=== PATIENT | female | born 1955 | race Caucasian/White ===

== ENCOUNTER 2016-06-28 07:54 | Emergency (ER) | payer OTHER ==
[2016-06-28 08:10] VITALS: BP 119/68
--- NOTE | 2016-06-28 08:41 | UC ---
Lower Extremity/Ankle HPI - HPI Summary HPI Summary: 61 female presents with complaints of left 4th toe pain that began approximately 2 weeks ago. Does not recall an injury or trauma to her toe. States the toe pain gets worse when she walks/bears weight, about an 8/10. However she is able to move her toe manually, without bearing weight, with minimal pain. She denies any bruising, swelling and redness. Denies foot and ankle pain. She take Celebrex on a daily basis which does not seem to help her pain. Has not related the toe pain to any specific shoes as she wears different ones daily. Can not point to one spot on her toe that hurts the worse, states it is the entire thing. Palpating her toes does cause some pain. Admits to arthritis of her lower back. - History of Current Complaint Chief Complaint: UCLowerExtremity Stated Complaint: TOE COMPLAINT Time Seen by Provider: 06/28/16 08:20 Hx Obtained From: Patient ?: No Onset/Duration: Sudden Onset, Lasting Weeks, Worse Since Severity Initially: Mild Severity Currently: Mild Pain Intensity: 8 Pain Scale Used: 0-10 Numeric Aggravating Factor(s): Standing, Ambulation Alleviating Factor(s): Rest Able to Bear Weight: Yes - Risk Factors Gout Risk Factors: Negative DVT Risk Factors: Negative Septic Arthritis Risk Factor: Negative - Allergies/Home Medications Allergies/Adverse Reactions: Allergies Allergy/AdvReac Type Severity Reaction Status Date / Time Penicillins Allergy Severe Hives Verified 08/15/15 07:54 Doxycycline AdvReac Intermediate GI Upset Verified 02/23/16 08:03 Adhesive Tape AdvReac RASH IF Verified 02/23/16 08:03 LEFT ON TOO LONG PMH/Surg Hx/FS Hx/Imm Hx Endocrine History Of: Denies: Diabetes, Thyroid Disease Cardiovascular History Of: Denies: Cardiac Disorders, Hypertension, Pacemaker/ICD Respiratory History Of: Denies: COPD, Asthma GI/ History Of: Denies: Ulcer Cancer History Of: Denies: Breast Cancer - Surgical History Surgical History: Yes Surgery Procedure, Year, and Place: hysterectomy 1994, [facility] [place]. tubular 36, [facility]. appendix, ,[facility]. right knee ARTHROSCOPIC SURGERY, [facility]. BIOPSY OF LEFT BREAST, [facility] (ATLEAST 20 YEARS AGO) - Family History Known Family History: Positive: Diabetes - paternal grandfather Negative: Cardiac Disease, Hypertension - Social History Alcohol Use: Occasionally Alcohol Amount: a few times weekly Substance Use Type: None Smoking Status (MU): Current Some Day Smoker Type: Cigarettes Amount Used/How Often: only when having a couple of beers Length of Time of Smoking/Using Tobacco: 15 YEARS Have You Smoked in the Last Year: No When Did the Patient Quit Smoking/Using Tobacco: 2010 - Immunization History Most Recent Influenza Vaccination: season Review of Systems Constitutional: Negative Skin: Negative Eyes: Negative ENT: Negative Respiratory: Negative Cardiovascular: Negative Motor: Negative Neurovascular: Negative Musculoskeletal: Arthralgia, Myalgia - left 4th toe Neurological: Negative Psychological: Negative All Other Systems Reviewed And Are Negative: Yes Physical Exam Triage Information Reviewed: Yes Appearance: Well-Appearing, No Pain Distress, Well-Nourished Vital Signs: Initial Vital Signs Temp 98.6 F 06/28/16 07:59 Pulse 82 06/28/16 07:59 Resp 18 06/28/16 07:59 BP 119/68 06/28/16 07:59 Pulse Ox 95 06/28/16 07:59 Vital Signs Reviewed: Yes Eye Exam: Normal Eyes: Positive: Conjunctiva Clear ENT: Positive: Normal ENT inspection, Hearing grossly normal Dental Exam: Normal Neck exam: Normal Neck: Positive: Supple, Nontender Respiratory: Positive: Chest non-tender, Lungs clear, Normal breath sounds, No respiratory distress, No accessory muscle use Cardiovascular: Positive: RRR, No Murmur, Pulses Normal - 2+ pedal pulses, Brisk Capillary Refill Abdominal Exam: Normal Musculoskeletal: Positive: Strength Intact - 4/5 of the 4th and 5th left toes due to pain, ROM Intact - with pain on left toes 4/5th flexion/extension, No Edema, Other: - tenderness on palpation of 4/5th base of toes, proximal phalanx of left. Neurological: Positive: Alert - sensation intact Psychological Exam: Normal Psychological: Positive: Normal Response To Family, Age Appropriate Behavior Skin Exam: Normal Skin: Positive: Other - skin intact, no sign of trauma, obvious deformity, ecchymosis or edema Diagnostics - Radiology left 4th toe Xray Interpretation: Positive (See Comments) - NONDISPLACED FRACTURE OF THE BASE OF THE FIFTH PROXIMAL PHALANX. Radiology Interpretation Completed By: Radiologist Lower Extremity Course/Dx - Course Course Of Treatment: x-ray of left 4th toe obtained, fracture of 5th proximal phalanx noted. given aleve in office. crutches, savannah tape and post-op shoe. RICE and NSAID's. - Differential Dx/Diagnosis Differential Diagnosis/HQI/PQRI: Arthritis, Contusion, Dislocation, Fracture ( Closed), Sprain, Strain, Other Provider Diagnoses: fracture of 5th left toe Discharge - Discharge Plan Condition: Stable Disposition: HOME Patient Education Materials: Toe Fracture (ED) Referrals: Sade Velasco NP [Primary Care Provider] - Additional Instructions: Take Aleve daily for pain and inflammation with food to avoid upset stomach. Rest, ice and elevate your toe as much as you can. Try and avoid walking on left foot, use shoe brace and crutches. Avoid bearing weight on left foot. Follow up with primary care provider in a few weeks to ensure proper healing. Fracture may take up to 4-6 weeks to heal. If symptoms worsen or do not improve please return or seek medical attention promptly.
--- NOTE | 2016-06-28 09:04 | RAD ---
HISTORY: left fourth toe pain COMPARISONS: None VIEWS: 3, Frontal, lateral, and oblique views of the fourth digit of the left foot FINDINGS: BONE DENSITY: Normal. BONES: There is no displaced fracture of the base of the fifth proximal phalanx, with articular extension to the MCP joint. JOINTS: There is no arthropathy. ALIGNMENT: There is no dislocation. SOFT TISSUES: Unremarkable. OTHER FINDINGS: None. IMPRESSION: NONDISPLACED FRACTURE OF THE BASE OF THE FIFTH PROXIMAL PHALANX.
[2016-06-28] MEDS ORDERED: Naproxen TAB* 250 MG PO ONE (09:21)
== END 2016-06-28 09:59 | disposition home or self-care (01) ==
LOC: UCEAST 07:54
DX: S92.502A Displaced unspecified fracture of left lesser toe(s), initial encounter for closed fracture (principal); X58.XXXA Exposure to other specified factors, initial encounter; Y93.9 Activity, unspecified; Y99.9 Unspecified external cause status; F17.210 Nicotine dependence, cigarettes, uncomplicated; Z88.1 Allergy status to other antibiotic agents; Z88.0 Allergy status to penicillin
CPT/HCPCS: 99203; A9270-GY; G0463

== ENCOUNTER 2017-08-04 07:00 | Inpatient (IN) | payer OTHER ==
--- NOTE | 2017-07-22 23:03 | HP ---
HISTORY AND PHYSICAL: DATE OF SURGERY: 08/04/17 DATE OF OFFICE VISIT: 07/22/17 SURGEON: Kari Aguilar MD * (DICTATED BY TOSHA ELIZONDO) PROCEDURE: Right total knee arthroplasty. CHIEF COMPLAINT: Right knee pain. HISTORY OF PRESENT ILLNESS: Ms. Klein is a 62-year-old female with complaints of right knee pain secondary to end-stage osteoarthritis. She has failed conservative management and elected to proceed with a right total knee arthroplasty, which is scheduled for 08/04/[address] Aguilar. PAST MEDICAL HISTORY: Asthma and sleep apnea. PAST SURGICAL HISTORY: Appendectomy, removal of tubal , hysterectomy, and right knee arthroscopy. CURRENT MEDICATIONS: 1. Omeprazole 20 mg daily. 2. Ventolin HFA. 3. Trazodone 50 mg q.h.s. 4. Celebrex 200 mg daily. 5. Cymbalta 60 mg daily. ALLERGIES: To PENICILLIN, DOXYCYCLINE, and LATEX. FAMILY HISTORY: Kidney disease. SOCIAL HISTORY: She is a 62-year-old female. She lives with her . She smokes approximately 1 to 3 cigarettes every other day. She denies use of drugs. Uses occasional alcohol. REVIEW OF SYSTEMS: A complete 14-point review of systems were reviewed with the patient. It was all negative and noncontributory. PHYSICAL EXAMINATION GENERAL: Well developed, well nourished, in no acute distress. VITAL SIGNS: She stands 5 feet 6 inches tall, weighs 190 pounds, blood pressure 124/72, heart rate is 90. HEENT: Normocephalic, atraumatic. NECK: Supple. No palpable lymph nodes. PULMONARY: Lungs are clear to auscultation bilaterally. CARDIO: Regular rate and rhythm. Strong S1, S2. ABDOMEN: Soft, nontender, nondistended. NEUROLOGICAL: She is alert and oriented x3. Cranial nerves II through XII are intact. MUSCULOSKELETAL: Right lower extremity: Skin is intact. open wounds or abrasions. She has some tenderness over the medial and lateral joint line of the right knee. Some moderate effusion. Range of motion is 10 to 110 degrees with patellofemoral crepitus. 2+ dorsalis pedis pulses. Intact sensation. Her lower extremity muscle group strengths are intact at 5/5. ASSESSMENT AND PLAN: Ms. Klein is a 62-year-old female with end-stage osteoarthritis of the right knee. She has failed conservative management and elected to proceed with a right total knee arthroplasty, which is scheduled for 08/04/[address] Aguilar discussed the risks and benefits of the surgery at today's visit and all of her questions were answered. She will follow up with Dr. Aguilar 2 weeks after the surgery. TOSHA ELIZONDO [id number]/[facility] #: [id number] MTDD
[~2017-08-04 07:00] MED LIST: Buffered Lidocaine 0.9% SYRIN* 5 ML/SYR SYRINGE INTRADERM ONE; Dexamethasone TAB* 4 MG PO ONE; DiMENhydriNATE IV* 50 MG/ML VIAL IV PUSH PRN; Famotidine TAB* 20 MG PO ONE; Gabapentin CAP(*) 300 MG PO ONE; Morphine INJ* 2 MG/ML 1 ML CARPUJECT IV PRN; Naloxone* 0.4 MG/ML 1 ML VIAL IV PRN; Ondansetron INJ* 2 MG/ML VIAL ONE; PROCHLORPERAZINE INJ 5 MG/ML 2 ML VIAL IV PRN; Scopolamine 1.5 mg* PATCH TRANSDERM PRN; fentaNYL* 50 MCG/ML 2 ML VIAL (100 MCG VIAL) IV PRN
[2017-08-04] MEDS ORDERED: Gabapentin CAP(*) 300 MG ONE (07:14)
[2017-08-04] MEDS ORDERED: Ondansetron ODT TAB* 4 MG ONE (07:14)
[2017-08-04] MEDS ORDERED: Famotidine TAB* 20 MG ONE (07:15)
[2017-08-04] MEDS ORDERED: Clindamycin 900 MG IVPREMIX(* 900 MG/50 ML SDV IV ONE (07:15)
[2017-08-04] MEDS ORDERED: Dexamethasone TAB* 4 MG ONE (07:15)
[2017-08-04] MEDS ORDERED: fentaNYL* 50 MCG/ML 2 ML VIAL (100 MCG VIAL) ONE (07:48)
[2017-08-04] MEDS ORDERED: Midazolam* 1 MG/ML 5 ML VIAL (5 MG) ONE ×2 (07:48→08:46)
[2017-08-04] MEDS ORDERED: Bupivacaine 0.5% PF 10 ML VIAL INJ ONE ×2 (08:52→09:48)
[2017-08-04] MEDS ORDERED: Lidocaine 2% PF * 5 ML VIAL ONE (09:48)
[2017-08-04] MEDS ORDERED: Bupivacaine 0.25% SDV* 30 ML ONE (09:48)
[2017-08-04] MEDS ORDERED: Phenylephrine INJ* 10 MG/ML 1 ML VIAL (10 MG) ONE (09:48)
[2017-08-04] MEDS ORDERED: PROCHLORPERAZINE INJ 5 MG/ML 2 ML VIAL ONE (09:49)
[2017-08-04] MEDS ORDERED: Ketorolac INJ* 30 MG/ML 1 ML VIAL ONE (09:49)
[2017-08-04] MEDS ORDERED: Propofol* 500 MG/50 ML BTL ONE (11:18)
[2017-08-04] MEDS ORDERED: diPHENhydraMINE IV* 50 MG/ML 1 ml VIAL (BENADRYL) IV PRN (11:34)
[2017-08-04] MEDS ORDERED: Ondansetron 40 MG VIAL* 2 MG/ML 20 ML VIAL IV PRN (11:34)
[2017-08-04] MEDS ORDERED: Ondansetron TAB* 4 MG PO PRN (11:34)
[2017-08-04] MEDS ORDERED: Magnesium Hydroxide LIQ* 30 ML UDC PO PRN (11:34)
[2017-08-04] MEDS ORDERED: Bisacodyl SUPP* 10 MG SUPP PR PRN (11:34)
[2017-08-04] MEDS ORDERED: Polyethylene Glycol 3350* 17 GM PACKET PO PRN (11:34)
[2017-08-04] MEDS ORDERED: oxyCODONE TAB* 5 MG TAB PO PRN (11:37)
[2017-08-04] MEDS ORDERED: Clindamycin 600 MG IVPREMIX(* 600 MG/50 ML SDV IV SCH (12:00)
--- NOTE | 2017-08-04 12:23 | RAD ---
INDICATION: Status post total right knee replacement surgery. TECHNIQUE: 2 views of the right knee were obtained. FINDINGS: The patient is status post total right knee replacement surgery. The bones and prostheses are in normal alignment. There is a surgical drain present anterior to the distal femur. IMPRESSION: STATUS POST TOTAL RIGHT KNEE WITH PLACEMENT SURGERY.
[2017-08-04] MEDS: oxyCODONE TAB* 5 MG TAB PO PRN ×2 (14:06→20:20)
[2017-08-04] MEDS: oxyCODONE TAB* 5 MG TAB ONE ×2 (14:10→15:24)
[2017-08-04] MEDS: Cyclobenzaprine TAB* 10 MG PO PRN ×2 (15:10→20:20)
[2017-08-04] MEDS ORDERED: Morphine VIAL* 4 MG/ML VIAL (1 ml vial) IV PRN (16:21)
[2017-08-04] MEDS ORDERED: Ketorolac INJ* 30 MG/ML 1 ML VIAL IV PUSH ONE (16:23)
[2017-08-04] MEDS ORDERED: oxyCODONE/Acetamin 5/325 MG* TAB PO PRN ×3 (16:29→16:33)
[2017-08-04] MEDS ORDERED: Acetaminophen TAB* 325 MG PO PRN (16:33)
[2017-08-04] MEDS ORDERED: Warfarin TAB(*) 6 MG PO ONE (17:00)
[2017-08-04] MEDS: oxyCODONE/Acetamin 5/325 MG* TAB PO PRN ×2 (18:13→22:40)
[2017-08-04] MEDS: Clindamycin 600 MG IVPREMIX(* 600 MG/50 ML SDV IV SCH (18:14)
[2017-08-04] MEDS: Magnesium Hydroxide LIQ* 30 ML UDC PO SCH (20:20)
[2017-08-04] MEDS: Docusate CAP* 100 MG PO SCH (20:20)
[2017-08-04] MEDS: Morphine VIAL* 4 MG/ML VIAL (1 ml vial) IV PRN (22:52)
[2017-08-05] MEDS: oxyCODONE TAB* 5 MG TAB PO PRN ×2 (00:46→08:18)
[2017-08-05] MEDS: Clindamycin 600 MG IVPREMIX(* 600 MG/50 ML SDV IV SCH ×2 (01:58→09:40)
[2017-08-05 06:06] LABS: Hematocrit 29 % (35-47); Hemoglobin 9.6 g/dl (12.0-16.0); Mean Platelet Volume 8.1 um3 (7.4-10.4); Platelet Count 175 10^3/ul (150-450)
[2017-08-05] MEDS: oxyCODONE/Acetamin 5/325 MG* TAB PO PRN ×5 (06:08→23:24)
[2017-08-05 06:15] LABS: INR 0.82 (0.77-1.02)
[2017-08-05] MEDS: Docusate CAP* 100 MG PO SCH ×2 (08:15→20:26)
[2017-08-05] MEDS: Magnesium Hydroxide LIQ* 30 ML UDC PO SCH ×2 (08:15→20:26)
[2017-08-05] MEDS: Morphine TAB Extended Release (*) 15 MG TAB.ER PO SCH ×2 (10:31→22:25)
[2017-08-05] MEDS: Enoxaparin(*) 40 MG/0.4 ML SYR SUBCUT SCH (11:41)
--- NOTE | 2017-08-05 12:17 | PN ---
Progress Note - Progress Note Date of Service: 08/05/17 SOAP: Subjective: 62 y/o female s/p R TKA by Dr. Tsang 08/04/2017. Patient reports increase dd pain, was changed to long acting pain medication this AM. Denies Chest pain, SOB, VSS afebriel. Objectiv General- Well appering, NAD AO, resting in bed comfortably. MSK- Dressing intact over R knee, no drainage, draine removed. + df/pf, PT 2+ , neg homans sign, SITLT b/l. Vital Signs Temp 98.0 F 08/05/17 07:34 Pulse 70 08/05/17 07:34 Resp 16 08/05/17 10:31 BP 97/47 08/05/17 07:34 Pulse Ox 97 08/05/17 08:00 Intake & Output 08/04/17 08/05/17 08/05/17 18:59 06:59 18:59 Intake Total 3090 1035 Output Total 1050 50 Balance 2040 985 Weight 84.277 kg Intake: IV Fluids 2850 985 CLINDAMYCIN 900MG IV 50 LR 2800 985 IVPB 50 ABX - CLINDAMYCIN 50 Oral 240 Output: Ruiz 1050 50 Assessment: []Stable 62 y/o female s/p R TKA by Dr. Tsang 08/04/2017. Plan: []- DVT prophylaxis- coumadin, lovenox. - post-op abx- running - PT/OT - possible d/c tomorrow - f/u with Dr. tsang in 10-14 days Acetaminophen (Tylenol Tab*) 650 mg PO Q4H PRN PRN Reason: FEVER/PAIN Bisacodyl (Dulcolax Supp*) 10 mg MD DAILY PRN PRN Reason: constipation Cyclobenzaprine HCl (Flexeril Tab*) 10 mg PO TID PRN PRN Reason: SPASMS Last Admin: 08/04/17 20:20 Dose: 10 mg Diphenhydramine HCl (Benadryl Iv*) 12.5 mg IV Q6H PRN PRN Reason: PRURITIS Docusate Sodium (Colace Cap*) 100 mg PO BID ROBBIN Last Admin: 08/05/17 08:15 Dose: 100 mg Enoxaparin Sodium (Lovenox(*)) 40 mg SUBCUT Q24H ROBBIN Last Admin: 08/05/17 11:41 Dose: 40 mg Lactated Ringer's (Lactated Ringers 1000 Ml Bag*) 1,000 mls @ 100 mls/hr IV PER RATE [facility] Last Admin: 08/05/17 00:20 Dose: 100 mls/hr Lactulose (Lactulose*) 30 ml PO Q6H PRN PRN Reason: constipation Magnesium Hydroxide (Milk Of Magnesia Liq*) [address] [facility] Last Admin: 08/05/17 08:15 Dose: 30 ml Magnesium Hydroxide (Milk Of Magnesia Liq*) 30 ml PO Q6H PRN PRN Reason: constipation Morphine Sulfate (Morphine Vial*) 2 mg IV Q2H PRN PRN Reason: PAIN Last Admin: 08/04/17 22:52 Dose: 2 mg Morphine Sulfate (Morphine Vial*) 4 mg IV Q4H PRN PRN Reason: PAIN - UNRELIEVED Morphine Sulfate (Ms Contin(*)) [address] [facility] Last Admin: 08/05/17 10:31 Dose: 15 mg Ondansetron HCl (Zofran 40 Mg Vial*) 4 mg IV Q6H PRN PRN Reason: nausea Ondansetron HCl (Zofran Tab*) 4 mg PO Q6H PRN PRN Reason: NAUSEA Oxycodone HCl (Roxycodone Tab*) 5 mg PO Q4H PRN PRN Reason: PAIN - MILD TO MODERATE Oxycodone/Acetaminophen (Percocet 5/325 Tab*) 1 tab PO Q4H PRN PRN Reason: PAIN - MILD Oxycodone/Acetaminophen (Percocet 5/325 Tab*) 2 tab PO Q4H PRN PRN Reason: PAIN - MODERATE Last Admin: 08/05/17 10:30 Dose: 2 tab Pharmacy Profile Note (Scopolamine Patch Remove*) 1 note PATCH OFF Q72H ONE Stop: 08/07/17 05:47 Pharmacy Profile Note (Coumadin Daily Reminder*) [address] [facility] Polyethylene Glycol/Electrolytes (Miralax*) 17 gm PO DAILY PRN PRN Reason: Constipation
--- NOTE | 2017-08-05 13:33 | OP ---
OPERATIVE NOTE: DATE OF OPERATION: 08/04/17 DATE OF : 59 ATTENDING SURGEON: Kari Aguilar MD. COOKIE MIXER HELPER: TOSHA Mendes. Ms. Torres did help throughout the procedure with preparation of the leg, wound retraction, manipul ation of the knee, and wound closure. ANESTHESIOLOGIST: Dr. Villasenor. ANESTHESIA: Spinal. PRE-OP DIAGNOSIS: Severe endstage degenerative osteoarthritis of the right knee joint. POST-OP DIAGNOSIS: Severe endstage degenerative osteoarthritis of the right knee joint. OPERATIVE PROCEDURE: Right total knee arthroplasty. TOURNIQUET TIME: 47 minutes. COMPLICATIONS: None. ESTIMATED BLOOD LOSS: 300 cc. SPECIMEN: Bone and cartilage from the right knee joint sent to pathology. HARDWARE USED: This is [employer] cemented total knee arthroplasty hardware. Two packages of S implex bone cement. For the femur, a 5 size posterior stabilized Legion Oxinium femoral component. For the tibia, a size 4 right tibial base plate. For the insert, a 9-mm posterior stabilized articula r insert, size 3-4. For the patella, a 32-mm, 3-peg all poly patella with 7.5 thickness. BRIEF HISTORY/INDICATION: Ms. Klein is a 62-year-old female with years of increasingly severe rig ht knee pain. She failed conservative treatment with antiinflammatories, pain medication, intraartic ular injections, and physical therapy. Radiographs showed advanced arthritis of the right knee joint . Due to continued pain and decreased quality of life, she elected to undergo right total knee arthr oplasty. Informed consent was obtained from the patient. She understood the risks of the surgery in cluded but were not limited to bleeding, infection, damage to nearby structures, continued pain, need for further surgery, intraoperative fracture, nerve palsy, hardware failure or loosening, knee stiff ness, loss of motion, stroke, heart attack, blood clot, and . She wished to proceed. INTRAOPERATIVE FINDINGS: Intraoperatively, the patient was noted to have full- thickness loss of car tilage along the medial and patellofemoral compartments. DESCRIPTION OF PROCEDURE: Ms. Klein was identified in the preanesthesia unit. Her right lower ext remity was marked as the correct operative site. Informed consent was signed and placed in the chart . She was taken to the operating room and placed under spinal anesthesia. A Ruiz catheter was plac ed. Tourniquet was placed on the right thigh. Right lower extremity was prepped and draped in the u sual sterile fashion. Preop time-out was made to correctly identify the patient, side, and site. Ap propriate perioperative antibiotics were given within 1 hour of incision. Tourniquet was inflated and total tourniquet time for this procedure was 47 minutes. A 12-cm midline incision was made with a 10-blade and carried down to the extensor mechanism. A new 10-blade was us ed to make a standard medial parapatellar arthrotomy. Patella was subluxed laterally. Electrocauter y was used to subperiosteally elevate the soft tissue off the superomedial tibia to the mid sagittal plane. The knee was flexed up. The anterior horn of the lateral meniscus and ACL were completely re leased. A drill was used to enter the distal femur. Intramedullary distal femoral cutting guide was pinned on the distal femur. Oscillating saw was used to make the distal femoral cut. Next, the exter nal rotation guide was pinned on the distal femur. Distal femur was sized to a size 5. Size 5 multi- cutting jig was pinned on the distal femur. Oscillating saw was used to make the appropriate 4 chamf er cuts. The PCL was completely released. The tibia was subluxed anteriorly. Extramedullary tibial cutting gu skye was pinned on the proximal tibia. Oscillating saw was used to make the proximal tibial cut perpe ndicular to the mechanical axis of the tibia. The bone was carefully removed. The knee was brought out into full extension. Spacer block had good fit with balance of medial and lateral ligaments. The flexion and extension gaps were well balanced. The knee was flexed up. Lamina crusher supervisor was placed both medially and laterally. Any remaining meniscus was carefully removed using electrocautery. Tibial tray and drop bee were placed to once again confirm a satisfactory tibial cut. This was confi rmed. A size 5 right femoral trial was impacted onto the distal femur and had excellent fit. The dyana x for the posterior stabilized implant prepared using a reamer and box cut osteotome. Size 4 tibial tray trial with a 9- mm insert trial was placed. The knee was taken through range of motion. The kn ee was stable in all positions with full extension and 130 degrees of flexion. There was satisfactor y patellofemoral tracking. The patella was everted. 7-mm of patellar bone and cartilage was careful ly removed using an oscillating saw. The patella was sized to a size 32. Three peg holes were drill ed through the size 32 guide. 32 trial patella with 7.5 thickness was placed and the knee was taken through range of motion. There was satisfactory patellofemoral tracking. All trials were carefully removed. The tibia was subluxed anteriorly and sized to a size 4. Proxima l tibia was prepared using a size 4 keel punch. All bony cut surfaces were copiously irrigated with sterile saline and dried. Final implants were cemented into place, starting with the tibia, followed by the femur and last the patella. An 9-mm insert trial was placed while the knee was brought out i nto full extension. Tourniquet was turned down at 47 minutes. The knee was copiously irrigated with sterile saline. Electrocautery was used to obtain meticulous hemostasis. Once the cement had fully cured, the insert trial was removed. Any excess cement was removed from around the capsule and hard swartz. Final insert chosen was a 9-mm posterior stabilized articular insert, size 3-4. This was lock ed into position on the tibial tray. Stability of the insert was checked and rechecked and noted to be stable. The knee was once again copiously irrigated. Extensor mechanism was closed using interrupted #1 Vicr yls over a medium Hemovac drain. The rest of the incision was closed in a layered fashion using 0 an d 2-0 Vicryls. Skin was closed using running 3-0 nylon suture. Sterile Xeroform, 4x4s, and Webril w ere used to cover the incision. Cold pack and Derek wrap were placed over this. The patient's anesthe fatoumata was reversed without difficulty. She was taken to the PACU in stable condition. Intended weightb earing will be weightbearing as tolerated. Intended DVT prophylaxis will be Coumadin with a Lovenox bridge. [id number]/[facility] #: [id number]
[2017-08-05] MEDS ORDERED: Warfarin TAB(*) 4 MG PO ONE (17:00)
[2017-08-05] MEDS: Cyclobenzaprine TAB* 10 MG PO PRN (18:48)
[2017-08-05] MEDS: Morphine VIAL* 4 MG/ML VIAL (1 ml vial) IV PRN (20:25)
[2017-08-06] MEDS: oxyCODONE/Acetamin 5/325 MG* TAB PO PRN ×3 (03:27→12:25)
[2017-08-06 06:24] LABS: Hematocrit 26 % (35-47); Hemoglobin 8.7 g/dl (12.0-16.0); Mean Platelet Volume 8.3 um3 (7.4-10.4); Platelet Count 157 10^3/ul (150-450)
[2017-08-06 06:31] LABS: INR 1.23 (0.77-1.02)
[2017-08-06] MEDS: oxyCODONE TAB* 5 MG TAB PO PRN ×3 (06:35→14:31)
[2017-08-06] MEDS: Magnesium Hydroxide LIQ* 30 ML UDC PO SCH (08:11)
[2017-08-06] MEDS: Docusate CAP* 100 MG PO SCH (08:11)
[2017-08-06] MEDS: Morphine TAB Extended Release (*) 15 MG TAB.ER PO SCH (10:00)
--- NOTE | 2017-08-06 10:53 | PN ---
Progress Note - Progress Note Date of Service: 08/06/17 SOAP: Subjective: 62 y/o female s/p R TKA by Dr. Tsang 08/04/2017. Patient reports that she was in more pain last night but has been controlling her pain better this morning.Long acting pain medication is onboard and she feels this has been helping. Denies Chest pain, SOB, VSS afebriel. Objectiv e General- Well appering, NAD AO, resting in bed comfortably. MSK- Dressing changed of right knee, no drainage, no erythema. + df/pf, PT 2+ , neg homans sign, SITLT b/l. Vital Signs Temp 98.0 F 08/05/17 07:34 Pulse 70 08/05/17 07:34 Resp 16 08/05/17 10:31 BP 97/47 08/05/17 07:34 Pulse Ox 97 08/05/17 08:00 Intake & Output 08/04/17 08/05/17 08/05/17 18:59 06:59 18:59 Intake Total 3090 1035 Output Total 1050 50 Balance 2040 985 Weight 84.277 kg Intake: IV Fluids 2850 985 CLINDAMYCIN 900MG IV 50 LR 2800 985 IVPB 50 ABX - CLINDAMYCIN 50 Oral 240 Output: Ruiz 1050 50 Assessment: []Stable 62 y/o female s/p R TKA by Dr. Tsang 08/04/2017. Plan: []- DVT prophylaxis- coumadin 8mg, lovenox. - PT/OT - DC today - f/u with Dr. tsang in 10-14 days
[2017-08-06] MEDS: Enoxaparin(*) 40 MG/0.4 ML SYR SUBCUT SCH (12:26)
[2017-08-06 14:25] VITALS: BP 113/51
[2017-08-07] MEDS ORDERED: Scopolamine PATCH Remove* 1 NOTE MISC PATCH OFF ONE (05:46)
--- NOTE | 2017-08-09 06:04 | DS ---
AMENDED REPORT NOW INCLUDES COSIGNER DESIGNATION - ESIGNED BEFORE ADJUSTMENTS DISCHARGE SUMMARY: DATE OF ADMISSION: 08/04/17 DATE OF DISCHARGE: 08/06/17 PROVIDER: Kari Aguilar MD * (DICTATED BY TOSHA FLANAGAN) ADMITTING DIAGNOSIS: Right total knee arthritis. CONSULTATIONS: Physical Therapy and Occupational Therapy. HISTORY OF PRESENT ILLNESS: Ms. Klein is a 62-year-old female with complaints of right knee pain secondary to end-stage osteoarthritis. She has failed conservative management and elected to proceed with a right total knee arthroplasty which was performed on 08/04/[address] Kari Aguilar. HOSPITAL COURSE: The patient was admitted to [facility] on 08/04/17 and underwent a right total knee arthroplasty with a no complications. The patient recovered briefly in the postanesthesia care unit, was transferred to the short surgical stay unit in stable condition. On postop day #1 the patient' s H and H was 9.6 and 29 with an INR of 1.23 after 6 mg of Coumadin the night before. Dressing was clean, dry, and intact. Right lower extremity was neurovascularly intact. She did demonstrate dorsiflexion and plantarflexion with good strength. The patient was able to get out of bed with physical therapy. Pain was well-controlled with long-acting MS-Contin 15 mg. On postop day #2, urinary cath was discontinued and the patient was able to void without difficulty. Incision was found to be benign with minimal drainage. No erythema or warmth. The patient's H and H was 8.7 and 26 and the INR was 1.23 after 8 mg of Coumadin the night before. The pain was well controlled again with long-acting MS-Contin 15 mg. The patient was able to ambulate with the use of a rolling walker assistance. The patient's pain was well- controlled, was found to be stable for discharge. Throughout the hospital course the vital signs remained stable and the patient was afebrile. DISCHARGE CONDITION: Good. DISCHARGE MEDICATIONS: 1. MS-Contin 15 mg. 2. Percocet 5/325. 3. Warfarin sodium 2 mg. 4. Colace 100 mg. HOME MEDICATIONS: 1. Omeprazole 20 mg. 2. Ventolin HFA. 3. Trazodone 50 mg. 4. Celebrex 200 mg. 5. Cymbalta 60 mg. DISCHARGE INSTRUCTIONS: 1. Weightbearing as tolerated. 2. Wound care. Okay to shower on postop day #3. No bathing, swimming, or submerging the wound. Use gentle soap, pat dry. Cover with gauze, Derek wrap, or tape. Follow orthopedic office for increased drainage, redness, increased pain , or fever. Go to ER with shortness of breath or chest pain. 4. Diet. Regular diet. Increase fluids and fiber to prevent consultation. Continue to use stool softeners. Call office if no bowel motion within 48 hours. 5. Continue physical therapy and occupational therapy exercise as shown. 6. Visiting home nurses will do wound checks. 7. Visiting home nurses will draw blood for INR on Tuesday and . 8. Coumadin dosing. Please note that you have been given 2 mg tablets. Please louise dosing instructions on your calender as they are provided to you. Dosing 8 mg tonight, 6 mg tomorrow. Recheck on Tuesday. 9. Pain control. Percocet 5/325 one to two tabs every 46 hours as needed for pain. Maximum of 10 tabs per day. Please note that Percocet contains Tylenol. Maximum daily dose of Tylenol is 4000 mg from all sources. MS-Contin has been sent to your pharmacy for long-acting pain medication, 1 tab every 12 hours. 10. Antibiotics required prior to any dental work. 11. Follow up with Dr. Kari Aguilar in 10 to 14 days. Call for an appointment. TOSHA FLANAGAN [id number]/[facility] #: [id number] VICKY
== END 2017-08-06 15:15 | disposition home health service (06) | DRG 470 ==
LOC: OR 07:00 → SSU 11:34 → INTOOBSV 11:34 → SSU 11:45 → OBSVTOIN 08-05 11:45
PROVIDERS: ADMIT Orthopaedic Surgery Adult Reconstructive Orthopaedic Surgery; ATTEND Orthopaedic Surgery Adult Reconstructive Orthopaedic Surgery
PROC: 0SRC069 Replacement of Right Knee Joint with Oxidized Zirconium on Polyethylene Synthetic Substitute, Cemented, Open Approach (ICD-10-PCS; principal; 2017-08-05)
DX: M17.11 Unilateral primary osteoarthritis, right knee (principal); J45.909 Unspecified asthma, uncomplicated; G47.30 Sleep apnea, unspecified; M25.461 Effusion, right knee; F17.210 Nicotine dependence, cigarettes, uncomplicated; Z98.51 Tubal ligation status; Z90.49 Acquired absence of other specified parts of digestive tract; Z72.89 Other problems related to lifestyle; Z90.710 Acquired absence of both cervix and uterus; Z88.0 Allergy status to penicillin; Z88.1 Allergy status to other antibiotic agents; Z91.040 Latex allergy status; Z84.1 Family history of disorders of kidney and ureter
CPT/HCPCS: 36415; 80048; 85014; 85018; 85049; 85610; 88305; 88311; A9270-GY; C1776; G0378; G8987-GO-CJ; G8988-GO-CI; J0780; J1650; J1885; J2250; J2270; J2405; J2704; J3010; J8540